=== PATIENT | male | born 1935 | race Caucasian/White ===

== ENCOUNTER → 2017-02-03 | Outpatient (CLI) | payer MEDICARE, OTHER ==
[~2017-02-03] MED LIST: ASPIRIN81 MG PO; B-121000 MC1 PO; BRILINTA90 MG PO; CO Q10 PO; CO Q10100 MG PO; COLACE PO; CRESTOR10 MG PO; FOLIC ACID PO; IRON325 ( 65 ) PO; METOPROLOL SUCC25 MG PO; PREVACID PO
--- NOTE | ~2017-02-03 | US37 ---
[facility] A Service of [facility] & [facility] RADIOLOGY TEXT RESULTS PATIENT: LUCRETIA LATIF LOCATION: CNIV : 39 UNIT #: [id number] AGE: [address]: Elke Ramos SEX: M ORDER DR: [id number] [facility] [address] [place], [place] [address] [id number] O MR#: [id number] Acc #: [id number] NAME: LUCRETIA LATIF : 1935 SEX: M STUDY DATE/TIME: 02/03/2017 9:48 UNIT: CNIV ROOM: STUDY DESCRIPTION: US Carotid W/Doppler Bilateral Attending Physician: Elke Ramos A.P.R.N. Referring Physician: Elke Ramos A.P.R.N. Ordering Physician: Elke Ramos A.P.R.N. Primary Care Physician: Sean Titus M.D. MEDICAL IMAGING REPORT This report is preliminary unless electronic signature is present DATE OF EXAMINATION 02/03/2017 EXAM Bilateral carotid duplex CLINICAL HISTORY Carotid stenosis. FINDINGS There is patent flow seen in the right common carotid, internal carotid, and external carotid arteries. There is some focal heterogeneous irregular plaque seen on the right carotid bifurcation, it extends into the internal and external carotid arteries. The right common carotid artery peak velocity is 86 cm/sec. The right internal carotid artery peak systolic and right diastolic velocities are: proximal 96/19 cm/sec, mid 145/32 cm/sec, distal 122/37 cm/sec. The right external carotid artery peak velocity is 122 cm/sec and vertebral artery 48 cm/sec. The right ICA/CCA. The right ICA/CCA ratio is 1.7. There is patent flow seen throughout the left common carotid, internal carotid, external carotid arteries. The left common carotid artery has some diffuse homogeneous, irregular-appearing plaque, however, at the carotid bifurcation becomes irregular, heterogeneous and echogenic, and extends into the internal and external carotid arteries. The right common carotid artery peak velocity is 107 cm/sec. The right internal carotid artery peak systolic or end diastolic velocities are: proximal 111/28 cm/sec, mid 146/39 cm/sec, distal 133/32 cm/sec. The left external carotid artery peak velocity is 102 cm/sec, vertebral artery is 36 cm/sec. The left ICA/CCA ratio is 1.4. IMPRESSION 1. The right carotid has moderate atherosclerosis, consistent with 50% to STS. [facility] A Service of [facility] & [facility] RADIOLOGY TEXT RESULTS PATIENT: LUCRETIA LATIF LOCATION: [facility] : 37 UNIT #: [id number] AGE: [address]: Elke Ramos SEX: M ORDER DR: 69% stenosis by duplex criteria. 2. The left carotid artery is moderate atherosclerosis, consistent with 50% to 69% stenosis by duplex criteria. 3. Vertebral flows antegrade bilaterally. STAT * RESULT Dictated by... Chun Isidro M.D. THIS IS AN ELECTRONICALLY VERIFIED REPORT Chun Isidro M.D. at 02/05/2017 11:49 AM YAW/juan TD: 02/03/2017 14:06 JOB #: [id number] MEDICAL IMAGING REPORT Page 1 of 1 COPY
== END | disposition home or self-care (01) ==
LOC: CNIV 09:19
DX: I65.23 Occlusion and stenosis of bilateral carotid arteries (principal)
CPT/HCPCS: 93880